=== PATIENT | male | born 1965 | race African-American/Black ===

== ENCOUNTER 2019-04-29 20:33 | Observation (INO) | payer MEDICAID, OTHER ==
[~2019-04-29] VITALS: Ht 190.5 cm; Wt 111.0 kg
[~2019-04-29 20:33] MED LIST: ATOR40TA68 PO; HYDR12.53 PO; MULTI PO; UBID50TA PO
[2019-04-29] MEDS ORDERED: SOD CHLORIDE 0.9% 1,000 ML IV STA (20:57)
[2019-04-29] MEDS: KETOROLAC 15 MG INJ IV STA ×2 (21:05→21:10)
[2019-04-29] MEDS: BELLADONNA/PHENOBARBITAL TAB PO STA ×2 (21:05→21:10)
[2019-04-29] MEDS: LIDOCAINE/MYLANTA 40 ML BTL PO STA ×2 (21:05→21:10)
[2019-04-29] MEDS: ONDANSETRON 4 MG INJ IV STA ×2 (21:05→21:10)
[2019-04-29] MEDS ORDERED: BELLADONNA/PHENOBARBITAL TAB PO STA (21:12)
[2019-04-29] MEDS ORDERED: KETOROLAC 15 MG INJ IV STA (21:12)
[2019-04-29] MEDS ORDERED: LIDOCAINE/MYLANTA 40 ML BTL PO STA (21:12)
[2019-04-29] MEDS ORDERED: ONDANSETRON 4 MG INJ IV STA (21:12)
[2019-04-29] MEDS ORDERED: SOD CHLORIDE 0.9% 500 ML IV STA (21:12)
[2019-04-29] MEDS ORDERED: ASPIRIN 81 MG TAB PO ONE (21:30)
[2019-04-29] MEDS ORDERED: ENALAPRILAT 1.25 MG INJ IV ONE (21:30)
[2019-04-29] MEDS ORDERED: NITROGLYCERIN (SL) 0.4 MG TAB SL ONE (21:30)
[2019-04-29] MEDS ORDERED: POTASSIUM CHLORIDE (SR) 20 MEQ TAB PO STA (21:32)
[2019-04-29] MEDS ORDERED: NITROGLYCERIN (SL) 0.4 MG TAB SL PRN (22:00)
[2019-04-29] MEDS ORDERED: DOCUSATE SODIUM 100 MG CAP PO PRN (22:00)
[2019-04-29] MEDS ORDERED: NACL 0.9% 3 ML SYG IV SCH (22:00)
[2019-04-29] MEDS ORDERED: ACETAMINOPHEN 325 MG TAB PO PRN (22:00)
[2019-04-29] MEDS ORDERED: ONDANSETRON 4 MG INJ IV PRN (22:00)
[2019-04-29] MEDS ORDERED: morphine 2 MG INJ IV PRN (22:00)
[2019-04-29] MEDS ORDERED: BISACODYL (EC) 5 MG TAB PO PRN (22:00)
[2019-04-30] VITALS (7 sets, daily range): BP systolic 109–126; BP diastolic 60–76; PULSE 50–79; RESP 16–18; Ht 190.5 cm; Wt 111.0 kg
[2019-04-30] MEDS: ASPIRIN 81 MG TAB PO SCH (08:35)
[2019-04-30] MEDS ORDERED: ATORVASTATIN 40 MG TAB PO SCH (21:00)
[2019-05-01 03:13] VITALS: BP 107/62; PULSE 56; RESP 18
[2019-05-01 07:26] VITALS: BP 118/65; PULSE 78; RESP 18
[2019-05-01] MEDS: ASPIRIN 81 MG TAB PO SCH (08:38)
[2019-05-01] MEDS ORDERED: HYDROCHLOROTHIAZIDE 12.5 MG CAP PO SCH (09:00)
[2019-05-01 11:15] VITALS: BP 131/74; PULSE 78; RESP 18
[2019-05-01] MEDS ORDERED: REGADENOSON 0.4 MG/5 ML SYG ONE (12:34)
[2019-05-01 15:22] VITALS: BP 122/75; PULSE 78; RESP 18
== END 2019-05-01 17:39 | disposition home or self-care (01) ==
LOC: E/R 20:33 → 6WM 22:05
PROVIDERS: ADMIT Family Medicine; ATTEND Family Medicine
DX: R07.89 Other chest pain (principal); I10 Essential (primary) hypertension; E66.9 Obesity, unspecified; Z68.30 Body mass index [BMI] 30.0-30.9, adult; E78.5 Hyperlipidemia, unspecified; Z79.82 Long term (current) use of aspirin
CPT/HCPCS: 36415; 71045; 78452; 80048; 80053; 80061; 82550; 82553; 83036; 83690; 83735; 84100; 84443; 84484; 85025; 85610; 85730; 93005; 93017; 93306; 96374; 96375; A9500; A9505; J1885; J2270; J2405; J2785; J7030; J7040; Z7500; Z7502; Z7610; G0378